=== PATIENT | female | born 2000 | race Caucasian/White ===

== ENCOUNTER 2025-04-30 20:37 | Emergency (ER) | payer MEDICAID ==
[~2025-04-30] VITALS: Ht 172.7 cm; Wt 88.0 kg
[2025-04-30 21:07] VITALS: O2SAT 99
[2025-04-30 23:29] VITALS: BP 110/66; PULSE 66; RESP 16; TEMP 36.7; O2SAT 96
[2025-05-01] MEDS ORDERED: IBUP-1455 MT (04:00)
== END 2025-04-30 23:40 | disposition home or self-care (01) ==
LOC: ER 20:37
DX: F41.1 Generalized anxiety disorder (principal); R20.2 Paresthesia of skin; R20.0 Anesthesia of skin
CPT/HCPCS: 71045; 93005; 99283

== ENCOUNTER 2025-05-01 02:22 | Emergency (ER) | payer MEDICAID ==
[~2025-05-01] VITALS: Ht 172.7 cm; Wt 97.0 kg
[2025-05-01 02:33] VITALS: O2SAT 98
[2025-05-01 03:05] LABS: BASOPHILS % 0.6 % (0.0-2.0); EOSINOPHILS % 0.3 % (0.0-5.0); HEMATOCRIT. 37.4 % (36.0-48.0); HEMOGLOBIN. 12.1 g/dL (12.0-16.0); LYMPHOCYTES % 21.9 % (20.0-50.0); MEAN PLATELET VOLUME 9.1 fl (7.4-10.4); MONOCYTES % 6.7 % (2.0-8.0); NEUTROPHILS % 70.5 % (40.0-76.0); PLATELET 246 x1000/uL (130-400); RED BLOOD CELL COUNT 4.76 mill/uL (4.2-5.4); RED CELL DISTRIBUTION WIDTH 16.9 % (11.6-14.6)
[2025-05-01] MEDS: SODIUM CHLORIDE 0.9% 1,000 ML IV ONE (03:13)
[2025-05-01] MEDS: KETOROLAC 15MG/ML VIAL IV ONE (03:14)
[2025-05-01 03:21] LABS: CREATININE 0.9 mg/dL (0.6-1.0); UREA NITROGEN BLOOD 9 mg/dL (9-23)
[2025-05-01 03:22] LABS: TROPONIN I HIGH SENSITIVITY < 4 ng/L (3.0-34)
[2025-05-01 03:23] LABS: ASPARTATE AMINOTRANSFERASE 18 IU/L (<34); BILIRUBIN DIRECT 0.1 mg/dL (<=3.0); BILIRUBIN TOTAL 0.5 mg/dL (0.1-1.0); PROTEIN TOTAL 7.3 g/dL (6.0-8.3)
[2025-05-01 03:30] LABS: HCG SCREEN NEGATIVE
[2025-05-01] MEDS ORDERED: IBUP-1455 MT (04:00)
[2025-05-01 04:09] VITALS: BP 116/70; PULSE 69; RESP 11; TEMP 36.4; O2SAT 100
== END 2025-05-01 04:24 | disposition home or self-care (01) ==
LOC: ER 02:22
DX: R07.89 Other chest pain (principal); F41.9 Anxiety disorder, unspecified
CPT/HCPCS: 80076; 80048; 80320; 84703; 83880; 85025; 84484; 36415; 71045; 93005; 96361; 96374; 99285; J1885; G0480